=== PATIENT | male | born 1995 | race Caucasian/White ===

== ENCOUNTER → 2016-06-26 | Outpatient (CLI) | payer OTHER ==
--- NOTE | 2016-06-26 13:05 | REP ---
Right knee series: Five views. History: Pain in the right knee. Findings: Five views of the right knee demonstrate a bone island in the medial femoral condyle. Bones, joints, and soft tissues are otherwise unremarkable. No erosive changes seen. There is no evidence of joint effusion. Impression: Negative right knee series. Signed by Ariel Weiss MD 06/26/2016 01:26 P
== END ==
LOC: M ADAMS 08:40
PROVIDERS: ATTEND Physician Assistant
DX: M25.561 Pain in right knee (principal)